=== PATIENT | male | born 1995 | race Caucasian/White ===

== ENCOUNTER 2020-09-25 12:21 | Emergency (ER) | payer BC, MEDICAID, SELFPAY ==
--- NOTE | ~2020-09-25 | US_ITS ---
EXAMINATION: US scrotum doppler EXAM DATE: 09/25/2020 15:19 INDICATION: Right testicular pain and swelling. TECHNIQUE: Multiple grayscale and Doppler images of the testicles and scrotum were obtained bilateral ly. There is no prior study for comparison. FINDINGS: Right testicle measures 4.7 x 3.1 x 2.6 cm and is morphologically normal. Low resistance Doppler genesis w confirmed. Epididymis appears somewhat hypervascular and likely edematous, possible epididymitis. There is no hydrocele or varicocele. Left testicle measures 4.3 x 2.5 x 2.2 cm and is morphologically normal. Low resistance Doppler flow confirmed. The epididymis is unremarkable. There is no hydrocele or varicocele. IMPRESSION: 1. Possible right-sided epididymitis. Reviewed, dictated and finalized at location A.
[2020-09-25 12:25] VITALS: BP 126/62; PULSE 94; RESP 16; TEMP 37; O2SAT 99
--- NOTE | 2020-09-25 12:59 | ED.GENADULT ---
HPI - General Adult General Chief complaint: Urogenital-Male Stated complaint: testicle pain and swelling Time Seen by Provider: 09/25/20 12:36 Source: patient History of Present Illness HPI narrative: Patient is a 25 y/o complaining of right testicular pain starting 4 days ago. He describes his pain as a bruise and it's worse with pressure and movement. He rates his pain as 3/10. There is no pain radiation. He has no dysuria or fever. He does not recall any trauma. Related Data Allergies Allergy/AdvReac Type Severity Reaction Status Date / Time cefaclor [From Ceclor] Allergy Unknown Verified 09/25/20 13:33 cephalexin [From Keflex] Allergy Unknown Verified 09/25/20 13:33 Review of Systems Review of Systems: All systems reviewed & are unremarkable except as noted in HPI and below Constitutional: Constitutional: Denies chills, Denies fever(s), Denies headache(s) and Denies weakness Eyes: Eyes: Denies blurry vision ENT: Denies headache(s) and Denies neck pain Cardiovascular: Cardiovascular: Denies chest pain and Denies dyspnea Respiratory: Respiratory: Denies cough and Denies dyspnea Gastrointestinal: Gastrointestinal: Denies abdominal pain, Denies diarrhea, Denies nausea and Denies vomiting Genitourinary: Genitourinary: Denies hematuria, Denies dysuria, Reports scrotal swelling and Reports testicular pain Musculoskeletal: Musculoskeletal: Denies back pain and Denies neck pain Neurologic: Denies headache(s) and Denies weakness PMF Social History Social History Gender identity (if verbalized by the patient): Male Exam Const: General: no acute distress and well developed Orientation/consciousness: oriented to person, oriented to place, oriented to time and patient oriented x3 HENMT: Head: normocephalic Ears: external ears normal General nose exam: Normal external nose present Eyes: General: appearance normal, both eyes and all related structures Conjunctivae: conjunctivae normal Neck: Neck: normal visual inspection and full ROM Chest: Chest palpation & inspection: normal inspection of the chest and no tenderness Resp: Effort & Inspection: normal respiratory effort Auscultation: clear to auscultation bilaterally Cardio: Rate: regular rate Rhythm: regular rhythm GI: GI Palp: No abdominal tenderness and Yes Soft to palpation : Penis: Yes normal penis Scrotum: scrotal swelling on the right and other (right sided tenderness) Skin: General skin exam: normal color and turgor normal Neuro: General: oriented to person, oriented to place, oriented to time and patient oriented x3 Cognition (Neuro): normal cognition Extrem: General: normal to inspection, full ROM and no pedal edema Psych: Appearance: grossly normal Mental Status: mental status grossly normal Affect: normal affect Course Vital Signs Vital signs: Vital Signs Temperature 37.0 C 09/25/20 12:25 Pulse Rate 94 09/25/20 12:25 Respiratory Rate 16 09/25/20 12:25 Blood Pressure 126/62 09/25/20 12:25 Pulse Oximetry 99 09/25/20 12:25 Temperature 36.8 C 09/25/20 13:28 Pulse Rate 54 L 09/25/20 17:42 Respiratory Rate 12 09/25/20 17:42 Blood Pressure 124/79 09/25/20 17:42 Pulse Oximetry 99 09/25/20 17:42 Medical Decision Making Vital Signs Vital Signs: Vital Signs Temperature 37.0 C 09/25/20 12:25 Pulse Rate 94 09/25/20 12:25 Respiratory Rate 16 09/25/20 12:25 Blood Pressure 126/62 09/25/20 12:25 Pulse Oximetry 99 09/25/20 12:25 Temperature 36.8 C 09/25/20 13:28 Pulse Rate 54 L 09/25/20 17:42 Respiratory Rate 12 09/25/20 17:42 Blood Pressure 124/79 09/25/20 17:42 Pulse Oximetry 99 09/25/20 17:42 Lab Data Result diagrams: 09/25/20 13:25 09/25/20 13:25 Labs: Lab Results 09/25/20 09/25/20 09/25/20 Range/Units 13:25 13:25 13:26 WBC 9.4 (4.5-10.0) K/mm3 RBC 4.87
[2020-09-25 13:28] VITALS: BP 114/77; PULSE 63; RESP 16; TEMP 36.8; O2SAT 98
[2020-09-25 13:39] LABS: Basophils Percent Auto 0.4 % (0.2-1.2); Eosinophils Absolute Auto 0.1 K/mm3 (0-0.3); Eosinophils Percent Auto 0.6 % (0-4.4); Hematocrit 46.8 % (42.0-52.0); Hemoglobin 15.7 g/dL (14.0-18.0); Immature Granulocyte Absolute 0.03 K/mm3 (0.00-0.031); Immature Granulocyte Percent A 0.3 % (0-0.5); Lymphocytes Absolute Auto 1.76 K/mm3 (0.9-3.2); Lymphocytes Percent Auto 18.7 % (18.3-44.2); Mean Corpuscular HGB Conc 33.5 g/dl (32-36); Mean Corpuscular Hemoglobin 32.2 pg (26-34); Mean Corpuscular Volume 96.1 fl (80-100); Mean Platelet Volume 9.6 fl (7.4-10.4); Monocytes Absolute Auto 0.8 K/mm3 (0.1-0.6); Monocytes Percent Auto 8.3 % (2.6-8.5); Neutrophils Absolute Auto 6.8 K/mm3 (1.3-6.7); Neutrophils Percent Auto 71.7 % (45.5-73.1); Platelet Count Result 246 k/mm3 (150-375); Red Blood Count 4.87 M/mm3 (4.6-6.20); Red Cell Distribution Width 12.1 % (11.5-14.5); White Blood Count 9.4 K/mm3 (4.5-10.0)
[2020-09-25 13:46] LABS: Add Urine Microscopic? YES; Appearance Urine Clear (Clear); Bacteria Urine Trace /hpf; Bilirubin Urine Negative (Negative); Blood Urine Negative (Negative); Color Urine Yellow (Yellow); Glucose Urine UA Negative (Negative); Ketones Urine Negative (Negative); Leukocyte Esterase Ur Trace LEU/UL (Negative); Nitrate Urine Negative (Negative); Protein Urine 1+ mg/dL (Negative); RBC Urine 0-2 /hpf (0-2); Specific Grav Ur 1.025 (1.001-1.035); Urobilinogen Urine Negative mg/dL (<2.0)
[2020-09-25 13:48] LABS: Anion Gap 8 mmol/L (8-16); Blood Urea Nitrogen 16 mg/dL (9-20); Calcium 9.4 mg/dL (8.4-10.2); Carbon Dioxide 28 mmol/L (22-30); Chloride 104 mmol/L (98-107); Estimated CRCL calculation 74 ml/min; Estimated Glomerular Filt Rate > 60; Glucose 96 mg/dL (75-110); Potassium 4.4 mmol/L (3.4-5.0); Sodium 140 mmol/L (137-145)
[2020-09-25 17:42] VITALS: BP 124/79; PULSE 54; RESP 12; O2SAT 99
== END 2020-09-25 17:43 | disposition home or self-care (01) ==
PROVIDERS: Emergency Provider Emergency Medicine; PCP Emergency Medicine
DX: N45.1 Epididymitis (principal)
CPT/HCPCS: 36415; 76870; 80048; 81001; 85025; 87086; 93976; 99284

== ENCOUNTER → 2021-02-07 08:48 | Outpatient (CLI) | payer MEDICAID, SELFPAY ==
--- NOTE | ~2021-02-07 | US_ITS ---
EXAMINATION: US scrotum doppler EXAM DATE: 02/07/2021 09:15 INDICATION: Right testicular pain . TECHNIQUE: Multiple grayscale and Doppler images of the testicles and scrotum were obtained bilateral ly. Comparison is made to prior examination from 09/25/2020. FINDINGS: Right testicle measures 5.5 x 2.5 x 3.4 cm and is morphologically normal. Low resistance Doppler genesis w confirmed. The epididymis is unremarkable. There is no hydrocele or varicocele. Left testicle measures 5.1 x 2.5 x 3.1 cm and is morphologically normal. Low resistance Doppler flow confirmed. The epididymis is unremarkable. There is no hydrocele or varicocele. IMPRESSION: Unremarkable testicular/scrotal ultrasound exam. Reviewed, dictated and finalized at location B. [employer]
== END ==
PROVIDERS: Visit Provider Nurse Practitioner
DX: N50.811 Right testicular pain (principal)
CPT/HCPCS: 76870; 93976